=== PATIENT | female | born 1935 | race Caucasian/White ===

== ENCOUNTER → 2021-12-12 08:11 | Outpatient (CLI) | payer MEDICARE, SELFPAY ==
[2021-12-12 12:02] LABS: SARS-CoV-2 RNA PCR Negative
== END ==
PROVIDERS: PCP Family Medicine; Visit Provider Physician Assistant
DX: R09.81 Nasal congestion (principal); Z20.822 Contact with and (suspected) exposure to COVID-19
CPT/HCPCS: C9803; U0003; U0005

== ENCOUNTER → 2023-07-29 09:21 | Outpatient (CLI) | payer MEDICARE, SELFPAY ==
--- NOTE | ~2023-07-29 | XR_ITS ---
XR hip LT 2V w AP pelvis 07/29/2023 10:01 Indication: Left hip pain Procedure: AP pelvis and 2 views left hip Comparison: 07/28/2019 Findings: There is a stable sclerotic lesion left acetabulum, compatible with bone island. Mild osteo arthritis of the left hip. There is lower lumbar spondylosis. Osteitis pubis. There is mild osteoarth ritis of the right hip. Pelvic rings are intact. No acute fracture or traumatic malalignment. Impression: 1: Mild bilateral symmetric osteoarthritis of the hips. Reviewed, dictated and finalized at location B. Impression: 1: Mild bilateral symmetric osteoarthritis of the hips.
== END ==
PROVIDERS: PCP Family Medicine; Visit Provider Family Medicine
DX: M16.0 Bilateral primary osteoarthritis of hip (principal); M25.552 Pain in left hip
CPT/HCPCS: 73502

== ENCOUNTER → 2023-11-04 12:56 | Outpatient (CLI) | payer MEDICARE, SELFPAY ==
--- NOTE | ~2023-11-04 | XR_ITS ---
XR knee LT min 4V DATE: 11/04/2023 13:12 INDICATION: Left knee pain TECHNIQUE: 4 views COMPARISON: None FINDINGS: There is diffuse osteopenia. There is enthesopathy of the patella at the quadriceps and patellar tendon insertions. There is slight periarticular spurring of the patella. There is mild particular spurring of the media l femoral condyle. Medial and lateral compartment and patellofemoral compartment joint spaces appear relatively preserved. No radiopaque intra-articular loose body or chondrocalcinosis is noted. No knee joint effusion is evident. No fracture or dislocation, periosteal reaction or bone destructio n. IMPRESSION: Osteopenia Mild osteoarthritis Reviewed, dictated and finalized at location B. NG [employer]
== END ==
PROVIDERS: PCP Family Medicine; Visit Provider Physician Assistant
DX: M17.12 Unilateral primary osteoarthritis, left knee (principal); M85.88 Other specified disorders of bone density and structure, other site
CPT/HCPCS: 73564

== ENCOUNTER 2024-06-27 12:51 | Outpatient (CLI) | payer MEDICARE, SELFPAY | END 2024-06-27 12:52 | disposition home or self-care (01) | LOC: ANHAUDIO 12:51 | PROVIDERS: PCP Family Medicine; Visit Provider Family Medicine | DX: H90.3 Sensorineural hearing loss, bilateral (principal) | CPT/HCPCS: 92557; 92567 ==

== ENCOUNTER 2024-07-04 10:50 | Emergency (ER) | payer MEDICARE, SELFPAY ==
--- NOTE | ~2024-07-04 | CT_ITS ---
Non-contrast Head CT History: CVA Technique: Axial non-contrast imaging of the brain was performed. Dose reduction technique was used on this scan by utilizing automated exposure control and iterative reconstruction technique. The dose -length product (DLP) was 681.00 mGy-cm. Findings: There is no evidence of intracranial hemorrhage, mass lesion, or acute infarct. Brain par enchyma appears normal. The ventricles and subarachnoid spaces are normal in size. The calvarium ap pears normal. The visualized paranasal sinuses and mastoid air cells are clear. Impression: No significant abnormality seen. Case discussed with Dr. Dixon at 11:10 AM on 07/04/24. Reviewed, dictated and finalized at location . Impression: No significant abnormality seen. Case discussed with Dr. Dixon at 11:10 AM on 07/04/24.
--- NOTE | ~2024-07-04 | CT_ITS ---
CT ANGIOGRAM NECK AND HEAD History: Left-sided paresthesia. Technique: Serial spiral axial images through the head and neck were obtained during arterial phase I V injection of 100 cc of Omnipaque 350. 3-D postprocessing and MIP images were then reconstructed on the remote workstation. Dose reduction technique was used on this scan by utilizing automated exposur e control and iterative reconstruction technique. The dose-length product (DLP) was 1092.90 mGy-cm. CTA neck findings: Bilateral vertebral arteries are patent. Bilateral common carotid, internal carot id, and external carotid arteries are patent. No large vessel occlusion or stenosis. No aneurysm. The proximal right internal carotid artery demonstrates 0% stenosis relative to the normal distal artery lumen diameter. The proximal left internal carotid artery demonstrates 0% stenosis relative to the n ormal distal artery lumen diameter. 3.5 cm cystic nodule in the right thyroid lobe is incidentally noted. CTA head findings: Distal vertebral arteries, basilar artery, and posterior cerebral arteries are pat ent. Distal internal carotid arteries, middle cerebral arteries, and anterior cerebral arteries are p atent. No large vessel occlusion or stenosis. No aneurysm. Impression: No significant abnormality seen. Reviewed, dictated and finalized at location . Impression: No significant abnormality seen.
--- NOTE | ~2024-07-04 | XR_ITS ---
Portable chest x-ray Comparison: None Clinical History: CVA Findings: Suspected COPD. No consolidation or pleural effusion. Cardiomediastinal silhouette is unr emarkable, with loop recorder. Bones and soft tissues are unremarkable. Impression: Suspected COPD. Reviewed, dictated and finalized at location . Impression: Suspected COPD.
--- NOTE | 2024-07-04 10:56 | ECG_ITS ---
Test Date: 2024-07-04 11:29:50 Measurements Intervals [place] Rate: 77 P: 73 IA: 153 QRS: 42 QRSD: 88 T: 57 QT: 356 QTc: 403 Interpretive Statements SINUS RHYTHM BASELINE ARTIFACT- I, III, AVR, AVL, AVF NORMAL ECG No previous ECG available for comparison Electronically Signed On 07-04-2024 17:27:05 CDT by Mau Pereira D.O.
[2024-07-04 10:57] VITALS: BP 184/72; PULSE 85; RESP 18; TEMP 36.3; O2SAT 100
[2024-07-04 11:01] LABS: Glucose Point of Care 100 mg/dl (65-105)
--- NOTE | 2024-07-04 11:01 | ED.NEUROSD ---
HPI - Neuro Symptoms/Deficit General Chief Complaint: Neuro Symptoms/Deficit Stated Complaint: TIA Time Seen by Provider: 07/04/24 11:01 Source: patient Mode of arrival: ambulatory Limitations: no limitations History of Present Illness HPI Narrative: 88 yo female presents with last known well 08:30. she had already been awake prior to that with no issues but acutely started experiencing left arm tingling followed by left leg tingling. By the time of arrival in the ED, left arm numbness has resolved but leg persists. She had a TIA approximately 10 years ago with no residual deficits. [facility] Past Medical History Medical History Transient ischemic attack (TIA) approx 2013 Exam Narrative: GENERAL: Well-appearing, well-nourished, and in no acute distress. HEAD: Normocephalic, atraumatic. EYES: Non injected, non icteric. EOMI without nystagmus. Peripheral powers intact. ENT: Nares clear, no rhinorrhea or epistaxis. NECK: Supple. CHEST: Speaking in full sentences. No respiratory distress. HEART: Regular rate and rhythm. . ABDOMEN: Soft, nondistended. EXTREMITIES: Normal range of motion. No lower extremity edema. SKIN: Warm, dry, no rash. NEURO: No focal deficits. Alert and oriented x3. Speaks clearly without aphasia or dysarthria. No motor drift x4. No extinction. Answers questions appropriately. Follows commands. PSYCH: Normal mood and affect. Course Vital Signs Vital signs: Vital Signs Temperature 97.3 F L 07/04/24 10:57 Pulse Rate 85 07/04/24 10:57 Respiratory Rate 18 07/04/24 10:57 Blood Pressure 184/72 H 07/04/24 10:57 Pulse Oximetry 100 07/04/24 10:57 Oxygen Delivery Room Air 07/04/24 10:57 Temperature 98 F 07/04/24 11:26 Pulse Rate 84 07/04/24 11:26 Respiratory Rate 16 07/04/24 11:26 Blood Pressure 129/69 07/04/24 11:26 Pulse Oximetry 95 07/04/24 11:26 Oxygen Delivery Room Air 07/04/24 10:57 MDM - Neuro Symptoms/Deficit MDM Narrative Medical decision making narrative: This is a 88 year old female who presents to the emergency department with concern for possible stroke. In the ED she is afebrile with VS notable for hyeprtension but resolved on recheck. Last known well is 8:30am. The patient is protecting their airway which is patent. An IV is established by nursing staff blood work sent to the lab for evaluation. An EKG will be performed. Accu-Chek was acceptable. NIHSS was evaluated per below. The patient was transported immediately to CT scan per stroke protocol for evaluation of acute intracranial bleed. NIHSS Level Of consciousness: 0 Month and age: 0 Follows commands:0 Gaze palsy:0 Visual powers:0 Facial palsy:0 Left arm motor drift:0 Right arm motor drift:0 Left leg motor drift:0 Right leg motor drift:0 Limb ataxia:0 Sensation:0 Aphasia:0 Dysarthria:0 Extinction:0 Total: 0 CT per stroke protocol shows: no acute process. Discussed with radiology. Patient has comorbidities that complexity management. Namely, history of TIA years 10 years ago (no deficits). Patient reassesssed. Her tingling in her leg has completely resolved. Improving neuro exam more consistent with TIA (cerebral thrombus/embolus without infarct) ABCD2 Risk Score Age greater than or equal to 60 = 1 SBP greater than or equal to140 or greater than or equal to DBP >90 = 1 Clinical features TIA: 0 other symptoms TIA duration >60 min 2 Diabetes 0 Total Score 4 points Per the validation study, 4-5 points confers a 2-day stroke risk of 4.1% and a 7-day stroke risk of 5.9% and a 90-day stroke risk of 9.8%. Patient is adamant that she does not want to stay although we discussed the process of a TIA workup. States she had a bad experience with her at [facility] previously. Shared decision making as we discussed her stroke risk percentages as above. She states she has an appointment with her PCP on
[2024-07-04 11:08] LABS: Basophils Absolute Auto 0.1 K/mm3 (0.0-0.1); Basophils Percent Auto 0.7 % (0.2-1.2); Eosinophils Absolute Auto 0.2 K/mm3 (0-0.3); Eosinophils Percent Auto 2.9 % (0-4.4); Hematocrit 42.4 % (37.0-47.0); Hemoglobin 14.2 g/dL (12.0-15.0); Immature Granulocyte Absolute 0.02 K/mm3 (0.00-0.031); Immature Granulocyte Percent A 0.3 % (0-0.5); Lymphocytes Percent Auto 23.5 % (18.3-44.2); Mean Corpuscular HGB Conc 33.5 g/dl (32-36); Mean Corpuscular Volume 95.5 fl (80-100); Mean Platelet Volume 11.5 fl (7.4-10.4); Monocytes Absolute Auto 0.5 K/mm3 (0.1-0.6); Monocytes Percent Auto 6.6 % (2.6-8.5); Neutrophils Absolute Auto 4.8 K/mm3 (1.3-6.7); Platelet Count Result 175 k/mm3 (150-375); Red Blood Count 4.44 M/mm3 (4.2-5.4); Red Cell Distribution Width 12.1 % (11.5-14.5); White Blood Count 7.2 K/mm3 (4.5-10.0)
[2024-07-04 11:13] LABS: Estimated Glomerular Filt Rate > 60
[2024-07-04 11:18] LABS: Alanine Aminotransferase 21 U/L (6-35); Albumin Level 4.3 g/dL (3.5-5.1); Alkaline Phosphatase 65 U/L (38-126); Anion Gap 7 mmol/L (4-12); Aspartate Amino Transferase 32 U/L (14-36); Bilirubin,Total 0.7 mg/dL (0.2-1.3); Blood Urea Nitrogen 13 mg/dL (7-17); Calcium 9.2 mg/dL (8.4-10.2); Carbon Dioxide 28 mmol/L (22-30); Chloride 105 mmol/L (98-107); Estimated Glomerular Filt Rate > 60; Glucose 93 mg/dL (65-110); Potassium 4.3 mmol/L (3.4-5.0); Sodium 140 mmol/L (137-145)
[2024-07-04 11:21] LABS: INR 1.1; Prothrombin Time 14.8 Seconds (11.1-14.7)
[2024-07-04 11:22] LABS: Partial Thromboplastin Time 43.9 Seconds (22.3-36.8)
[2024-07-04 11:26] VITALS: BP 129/69; PULSE 84; RESP 16; TEMP 36.6; O2SAT 95
[2024-07-04 11:30] LABS: Troponin I < 0.012 ng/mL (0.000-0.034)
--- NOTE | 2024-07-04 12:11 | PC.NURSE ---
Patient ambulated to the restroom with steady gate
== END 2024-07-04 13:00 | disposition home or self-care (01) ==
PROVIDERS: Emergency Provider Student in an Organized Health Care Education/Training Program; PCP Family Medicine
DX: G45.9 Transient cerebral ischemic attack, unspecified (principal); R20.2 Paresthesia of skin; Z86.73 Personal history of transient ischemic attack (TIA), and cerebral infarction without residual deficits
CPT/HCPCS: 36415; 70450; 70496; 70498; 71045; 80053; 82948; 84484; 85025; 85610; 85730; 93005; 99284; Q9967